=== PATIENT | female | born 1950 | race Caucasian/White ===

== ENCOUNTER 2023-06-26 14:46 | Observation (INO) | payer MEDICARE ==
[~2023-06-26 14:46] MED LIST: Iopamidol 300 61% 100 ML VIAL FS ONE
[2023-06-26] MEDS ORDERED: Lorazepam 2 MG/ML VIAL ONE (15:42)
[2023-06-26 15:45] LABS: #Monocytes 0.5 10x3/uL (0.0-1.1); #Neutrophils 3.3 10x3/uL (1.5-8.4); %Basophils 0.4 % (0.0-2.0); %Eosinophils 0.9 % (0.0-6.0); %Lymphocytes 14.9 % (18.0-47.0); %Monocytes 10.9 % (0.0-10.0); %Neutrophils 72.7 % (40.0-75.0); Hematocrit 36.1 % (34.9-44.5); Hemoglobin 12.6 g/dL (12.0-15.5); Mean Corpuscular HGB CONC 34.9 g/dL (32.0-36.0); Mean Corpuscular Hemoglobin 32.3 pg (27.0-33.0); Mean Corpuscular Volume 92.6 fl (81.6-98.3); Mean Platelet Volume 9.8 fl (7.4-10.4); Platelet Count 278 10x3/uL (150-450); RBC Distribution Width 12.1 % (11.5-14.5); White Blood Cell (WBC) Count 4.5 10x3/uL (3.5-10.5)
[2023-06-26 15:59] LABS: ALT (SGPT) 20 U/L (8-55); AST (SGOT) 25 U/L (5-34); Albumin 4.4 g/dL (3.4-4.8); Alkaline Phosphatase 66 U/L (40-110); Anion Gap 14 mmol/L (10-20); BUN (Urea Nitrogen) 10 mg/dL (9.8-20.1); Bilirubin, Total 0.3 mg/dL (0.2-1.2); Calc. Creatinine Clearance 0 mL/min (70-130); Calcium 9.3 mg/dL (7.8-10.44); Carbon Dioxide 26 mmol/L (23-31); Chloride 94 mmol/L (98-107); Estimated GFR 91; Globulin 2.8 g/dL (2.4-3.5); Glucose 118 mg/dL (83-110); Magnesium 1.7 mg/dL (1.6-2.6); Potassium 4.4 mmol/L (3.5-5.1); Protein, Total 7.2 g/dL (5.8-8.1); Sodium 130 mmol/L (136-145)
[2023-06-26 16:05] LABS: Troponin I 0.093 ng/mL (< 0.028)
[2023-06-26 17:26] LABS: Bilirubin Neg (Negative); Blood, Urine Negative (Negative); Glucose, Urine (Dipstick) Normal (Negative); Ketone, Urine 15 mg/dL (Negative); Leukocyte Negative (Negative); Nitrite Negative (Negative); Protein, Urine (Dipstick) 15 mg/dl (Neg-Trace); Urobilinogen Normal mg/dL (Less than 2)
[2023-06-26 17:30] LABS: Clarity Clear (Clear)
[2023-06-26 17:46] LABS: Bacteria/HPF None Seen HPF (None Seen); CAUTI Indications for Culture Alt mental st,lethar; RBC/HPF None Seen HPF (0-3); Squamous Epithelial 0-3 HPF (0-3); Urine Culture Reflex No No; WBC/HPF None Seen HPF (0-3)
[2023-06-26] MEDS ORDERED: Acetaminophen 650 MG Suppository PR PRN (18:27)
[2023-06-26] MEDS ORDERED: Ondansetron ODT 4 MG TAB PO PRN (18:27)
[2023-06-26] MEDS ORDERED: Lorazepam 2 MG/ML VIAL SLOW IVP PRN (18:27)
[2023-06-26] MEDS ORDERED: Ondansetron PF 4 MG/2 ML Vial IVP PRN (18:27)
[2023-06-26] MEDS ORDERED: Acetaminophen 325 MG TAB PO PRN (18:27)
[2023-06-26 18:45] VITALS: BMI 24.7
[2023-06-26] MEDS ORDERED: OXCARBAZEPINE 600 MG SCH (18:45)
[2023-06-26] MEDS ORDERED: Sodium Chloride 0.9% 1,000 ML IV SCH (19:00)
[2023-06-26 19:31] LABS: Troponin I 0.091 ng/mL (< 0.028)
[2023-06-26] MEDS ORDERED: OXcarbazepine 300 MG TAB PO SCH (21:00)
[2023-06-26] MEDS: Famotidine 20 MG TAB PO SCH (21:24)
[2023-06-26 22:07] LABS: Troponin I 0.095 ng/mL (< 0.028)
[2023-06-27] MEDS ORDERED: rOPINIRole HCl 0.25 MG TAB PO SCH (00:15)
[2023-06-27 04:40] LABS: #Eosinphils 0.1 10x3/uL (0.0-0.5); #Monocytes 0.5 10x3/uL (0.0-1.1); #Neutrophils 2.5 10x3/uL (1.5-8.4); %Basophils 0.5 % (0.0-2.0); %Eosinophils 2.4 % (0.0-6.0); %Lymphocytes 24.3 % (18.0-47.0); %Monocytes 12.2 % (0.0-10.0); %Neutrophils 60.6 % (40.0-75.0); Hematocrit 32.9 % (34.9-44.5); Hemoglobin 11.3 g/dL (12.0-15.5); Mean Corpuscular HGB CONC 34.3 g/dL (32.0-36.0); Mean Corpuscular Hemoglobin 31.9 pg (27.0-33.0); Mean Corpuscular Volume 92.9 fl (81.6-98.3); Mean Platelet Volume 10.1 fl (7.4-10.4); Platelet Count 265 10x3/uL (150-450); RBC Distribution Width 12.2 % (11.5-14.5); Red Blood Cell (RBC) Count 3.54 10x6/uL (3.90-5.03); White Blood Cell (WBC) Count 4.2 10x3/uL (3.5-10.5)
[2023-06-27 04:49] LABS: Anion Gap 12 mmol/L (10-20); BUN (Urea Nitrogen) 8 mg/dL (9.8-20.1); Calc. Creatinine Clearance 84 mL/min (70-130); Calcium 8.4 mg/dL (7.8-10.44); Carbon Dioxide 27 mmol/L (23-31); Cardiac Risk 3.5 (Less than 4.5); Chloride 101 mmol/L (98-107); Cholesterol 206 mg/dl (< 200 Desired); Estimated GFR 95; Glucose 89 mg/dL (83-110); HDL Cholesterol 59 mg/dL (>60 Neg Risk); LDL Cholesterol, Calculated 131 mg/dL; Potassium 3.7 mmol/L (3.5-5.1); Sodium 136 mmol/L (136-145); Triglycerides 78 mg/dL (Less than 150)
[2023-06-27] MEDS ORDERED: Levothyroxine Sodium 25 MCG TAB PO SCH (06:00)
[2023-06-27 08:44] VITALS: TEMP 97.9
[2023-06-27] MEDS ORDERED: PAROXETINE HCL 30 MG PO SCH (09:00)
[2023-06-27] MEDS ORDERED: OXcarbazepine 300 MG TAB PO SCH (09:00)
[2023-06-27] MEDS ORDERED: Amlodipine 5 MG TAB PO SCH (09:00)
[2023-06-27] MEDS ORDERED: Sodium Chloride 1 GM TAB PO SCH (09:00)
[2023-06-27] MEDS ORDERED: Aspirin Chewable 81 MG TAB PO SCH (09:00)
[2023-06-27] MEDS: Famotidine 20 MG TAB PO SCH (09:22)
[2023-06-27] MEDS ORDERED: rOPINIRole HCl 0.25 MG TAB PO PRN (09:46)
[2023-06-27 10:36] VITALS: BP 140/64
== END 2023-06-27 11:20 | disposition home or self-care (01) ==
LOC: CSHERS 14:46 → CSHTELE 17:34
PROVIDERS: ADMIT Family Medicine; ATTEND Family Medicine
DX: R10.9 Unspecified abdominal pain (principal); R11.0 Nausea; I10 Essential (primary) hypertension; R77.8 Other specified abnormalities of plasma proteins; E03.9 Hypothyroidism, unspecified; F32.A Depression, unspecified; G40.909 Epilepsy, unspecified, not intractable, without status epilepticus; E87.1 Hypo-osmolality and hyponatremia; Z90.89 Acquired absence of other organs; Z90.710 Acquired absence of both cervix and uterus; Z90.49 Acquired absence of other specified parts of digestive tract; Z88.5 Allergy status to narcotic agent; Z88.2 Allergy status to sulfonamides; Z79.899 Other long term (current) drug therapy; Z79.890 Hormone replacement therapy
CPT/HCPCS: 70450; 74177; 80048; 80053; 80061; 81001; 83605; 83735; 84443; 84484 ×2; 85025 ×2; 93005; 96372; G0378 ×3; 36415; J1650; J2060; J7050; Q9967

== ENCOUNTER 2023-07-19 08:26 | Observation (INO) | payer MEDICARE ==
[2023-07-19] MEDS ORDERED: Lorazepam 2 MG/ML VIAL ONE (08:45)
[2023-07-19 09:00] LABS: #Monocytes 0.4 10x3/uL (0.0-1.1); #Neutrophils 8.7 10x3/uL (1.5-8.4); %Basophils 0.2 % (0.0-2.0); %Lymphocytes 2.7 % (18.0-47.0); %Monocytes 4.1 % (0.0-10.0); %Neutrophils 92.8 % (40.0-75.0); Hematocrit 39.1 % (34.9-44.5); Hemoglobin 13.9 g/dL (12.0-15.5); Mean Corpuscular HGB CONC 35.5 g/dL (32.0-36.0); Mean Corpuscular Hemoglobin 32.9 pg (27.0-33.0); Mean Corpuscular Volume 92.7 fl (81.6-98.3); Mean Platelet Volume 10.3 fl (7.4-10.4); Platelet Count 279 10x3/uL (150-450); RBC Distribution Width 12.6 % (11.5-14.5); Red Blood Cell (RBC) Count 4.22 10x6/uL (3.90-5.03); White Blood Cell (WBC) Count 9.4 10x3/uL (3.5-10.5)
[2023-07-19 09:12] LABS: ALT (SGPT) 17 U/L (8-55); AST (SGOT) 26 U/L (5-34); Albumin 4.8 g/dL (3.4-4.8); Alkaline Phosphatase 85 U/L (40-110); Anion Gap 20 mmol/L (10-20); BUN (Urea Nitrogen) 7 mg/dL (9.8-20.1); Bilirubin, Total 0.3 mg/dL (0.2-1.2); Calc. Creatinine Clearance 0 mL/min (70-130); Carbon Dioxide 18 mmol/L (23-31); Chloride 96 mmol/L (98-107); Estimated GFR 81; Globulin 3.6 g/dL (2.4-3.5); Glucose 142 mg/dL (83-110); Potassium 4.2 mmol/L (3.5-5.1); Protein, Total 8.4 g/dL (5.8-8.1); Sodium 130 mmol/L (136-145)
[2023-07-19] MEDS ORDERED: Ondansetron ODT 4 MG TAB PO PRN (10:56)
[2023-07-19] MEDS ORDERED: Acetaminophen 325 MG TAB PO PRN (10:56)
[2023-07-19] MEDS ORDERED: Calcium Carbonate 500 MG ChewTAB PO PRN (10:56)
[2023-07-19] MEDS ORDERED: Senokot S 8.6-50 MG TAB PO PRN (10:56)
[2023-07-19] MEDS ORDERED: rOPINIRole HCl 0.25 MG TAB PO PRN (11:00)
[2023-07-19] MEDS ORDERED: Sodium Chloride 0.9% 1,000 ML IV SCH (11:00)
[2023-07-19] MEDS ORDERED: Lorazepam 2 MG/ML VIAL SLOW IVP PRN (11:02)
[2023-07-19] MEDS ORDERED: Lacosamide 200 MG in Sodium Chloride 0.9% 50 ML IVPB SCH (14:30)
[2023-07-19 15:20] LABS: Acetaminophen Less than 10 mcg/mL (10.0-30.0); Alcohol Less than 10.0 mg/dL (Less than 10); Salicylate Less than 8.0 mg/dL (15.0-30.0)
[2023-07-19 15:41] LABS: Carbamazepine-Tegretol 3.2 ug/mL (4.0-12.0)
[2023-07-19] MEDS ORDERED: Atorvastatin Calcium 20 MG TAB PO SCH (21:00)
[2023-07-20] MEDS ORDERED: Lacosamide 200 MG in Sodium Chloride 0.9% 50 ML IVPB SCH (05:00)
[2023-07-20] MEDS ORDERED: Levothyroxine Sodium 25 MCG TAB PO SCH (06:00)
[2023-07-20] MEDS ORDERED: Sodium Chloride 1 GM TAB PO SCH (09:00)
[2023-07-20] MEDS ORDERED: Amlodipine 5 MG TAB PO SCH (09:00)
[2023-07-20] MEDS ORDERED: Aspirin Chewable 81 MG TAB PO SCH (09:00)
[2023-07-20] MEDS ORDERED: PAROXETINE HCL 30 MG PO SCH (09:00)
== END 2023-07-19 20:12 | disposition short-term general hospital (02) ==
LOC: SUATTDRO 08:26 → CSHERS 08:26 → CSHERHOLD 10:59
PROVIDERS: ADMIT Internal Medicine; ATTEND Internal Medicine
DX: G40.909 Epilepsy, unspecified, not intractable, without status epilepticus (principal); Z88.5 Allergy status to narcotic agent; Z79.899 Other long term (current) drug therapy; Z88.8 Allergy status to other drugs, medicaments and biological substances; Z88.2 Allergy status to sulfonamides
CPT/HCPCS: 70450; 80053; 80156; 80183; 80307; 82962; 84146; 85025; 93005; 96374; 99285; G0378; 36415; 36416; 93010; C9254; J2060; J7050